=== PATIENT | female | born 1990 | race Two or more races ===

== ENCOUNTER → 2020-05-29 | Outpatient (CLI) | payer OTHER | END | disposition home or self-care (01) | LOC: OFIC 805 08:30 | PROVIDERS: ATTEND Otolaryngology | DX: J30.89 Other allergic rhinitis (principal); R13.0 Aphagia; R49.0 Dysphonia; K21.01 Gastro-esophageal reflux disease with esophagitis, with bleeding ==

== ENCOUNTER 2021-02-03 22:31 | Emergency (ER) | payer OTHER ==
[~2021-02-03] VITALS: Ht 172.7 cm; Wt 86.2 kg
[2021-02-04] MEDS ORDERED: BUTALB-CAFF-AC1 EACH PO (02:42)
== END 2021-02-04 02:52 | disposition home or self-care (01) ==
LOC: ER 22:31
DX: G43.809 Other migraine, not intractable, without status migrainosus (principal); G44.89 Other headache syndrome

== ENCOUNTER 2022-10-14 09:39 | Emergency (ER) | payer OTHER ==
[~2022-10-14] VITALS: Ht 172.7 cm; Wt 93.0 kg
[~2022-10-14 09:39] MED LIST: BUTALB-CAFF-AC1 EACH PO
[2022-10-14] MEDS ORDERED: PRENATABS RX T1 EACH (09:46)
== END 2022-10-14 15:10 | disposition home or self-care (01) ==
LOC: ER 09:39
DX: O99.613 Diseases of the digestive system complicating pregnancy, third trimester (principal); Z3A.28 28 weeks gestation of pregnancy; K52.9 Noninfective gastroenteritis and colitis, unspecified; Z88.6 Allergy status to analgesic agent